=== PATIENT | male | born 1965 | race Caucasian/White ===

== ENCOUNTER 2022-04-26 08:29 | Outpatient (CLI) | payer BC, SELFPAY ==
[2022-04-26 17:42] LABS: Basophils Absolute Auto 0.1 K/mm3 (0.0-0.1); Basophils Percent Auto 1.2 % (0.2-1.2); Eosinophils Absolute Auto 0.2 K/mm3 (0-0.3); Eosinophils Percent Auto 3.3 % (0-4.4); Hemoglobin 16.8 g/dL (14.0-18.0); Immature Granulocyte Absolute 0.01 K/mm3 (0.00-0.031); Immature Granulocyte Percent A 0.2 % (0-0.5); Lymphocytes Absolute Auto 1.92 K/mm3 (0.9-3.2); Lymphocytes Percent Auto 33.8 % (18.3-44.2); Mean Corpuscular Hemoglobin 30.5 pg (26-34); Mean Corpuscular Volume 87.1 fl (80-100); Mean Platelet Volume 9.8 fl (7.4-10.4); Monocytes Absolute Auto 0.5 K/mm3 (0.1-0.6); Monocytes Percent Auto 8.1 % (2.6-8.5); Neutrophils Percent Auto 53.4 % (45.5-73.1); Platelet Count Result 252 k/mm3 (150-375); Red Blood Count 5.51 M/mm3 (4.6-6.20); Red Cell Distribution Width 11.8 % (11.5-14.5); White Blood Count 5.7 K/mm3 (4.5-10.0)
[2022-04-26 18:24] LABS: Alanine Aminotransferase 122 U/L (6-50); Albumin Level 4.5 g/dL (3.5-5.1); Alkaline Phosphatase 124 U/L (38-126); Anion Gap 8 mmol/L (8-16); Aspartate Amino Transferase 83 U/L (17-59); Bilirubin,Total 1.1 mg/dL (0.2-1.3); Blood Urea Nitrogen 11 mg/dL (9-20); Calcium 9.1 mg/dL (8.4-10.2); Carbon Dioxide 26 mmol/L (22-30); Chloride 101 mmol/L (98-107); Cholesterol 207 mg/dL (0-200); Estimated Glomerular Filt Rate > 60; Glucose 286 mg/dL (65-110); HDL Direct 45 mg/dL; Potassium 4.2 mmol/L (3.4-5.0); Sodium 135 mmol/L (137-145); Triglycerides 153 mg/dL (<150)
[2022-04-26 18:40] LABS: LDL Cholesterol Direct 115 mg/dL
[2022-04-26 19:05] LABS: Prostate Specific Antigen 0.7 ng/mL (< OR = 4.0)
[2022-04-26 19:39] LABS: Thyroid Stimulating Hormone Reflex 0.782 uIU/mL (0.465-4.68)
[2022-04-27 18:09] LABS: Hemoglobin A1C 12.1 % (<5.7)
[2022-04-27 19:16] LABS: Hepatitis B Surface Antigen Negative (Negative)
[2022-04-27 19:34] LABS: HAV RESULT Negative (Negative); Hepatitis B Core IgM Result Negative (Negative); Hepatitis C Virus Antibody Negative (Negative)
== END 2022-04-26 08:30 | disposition home or self-care (01) ==
LOC: ANHGOSHLAB 08:30
PROVIDERS: PCP Family Medicine; Visit Provider Nurse Practitioner
DX: Z13.6 Encounter for screening for cardiovascular disorders (principal); Z12.5 Encounter for screening for malignant neoplasm of prostate; Z13.220 Encounter for screening for lipoid disorders; R53.83 Other fatigue; R73.9 Hyperglycemia, unspecified; R74.8 Abnormal levels of other serum enzymes
CPT/HCPCS: 36415; 80053; 80061; 80074; 83036; 84153; 84443; 85025; G0103

== ENCOUNTER → 2023-01-11 09:14 | Outpatient (CLI) | payer BC, SELFPAY ==
--- NOTE | ~2023-01-11 | XR_ITS ---
EXAM: XR shoulder RT min 2V DATE: 01/11/2023 09:23 HISTORY: injury 6-7 months ago pain in right shoulder . COMPARISON: None available. FINDINGS: Normal mineralization. No fracture or dislocation. No lytic or blastic lesion. Mild degene rative change at the AC joint and glenohumeral joint. No erosion or periosteal change. Soft tissues w ithin normal limits. 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 Reviewed, dictated and finalized at location [facility].
== END ==
PROVIDERS: PCP Family Medicine; Visit Provider Family Medicine
DX: M19.011 Primary osteoarthritis, right shoulder (principal)
CPT/HCPCS: 73030

== ENCOUNTER 2023-02-24 08:06 | Outpatient (CLI) | payer BC, SELFPAY ==
[2023-02-24 15:00] LABS: Basophils Absolute Auto 0.1 K/mm3 (0.0-0.1); Basophils Percent Auto 1.2 % (0.2-1.2); Eosinophils Absolute Auto 0.2 K/mm3 (0-0.3); Hemoglobin 17.1 g/dL (14.0-18.0); Immature Granulocyte Absolute 0.02 K/mm3 (0.00-0.031); Immature Granulocyte Percent A 0.3 % (0-0.5); Lymphocytes Absolute Auto 1.75 K/mm3 (0.9-3.2); Lymphocytes Percent Auto 28.8 % (18.3-44.2); Mean Corpuscular HGB Conc 32.9 g/dl (32-36); Mean Corpuscular Hemoglobin 30.4 pg (26-34); Mean Corpuscular Volume 92.4 fl (80-100); Mean Platelet Volume 9.8 fl (7.4-10.4); Monocytes Absolute Auto 0.5 K/mm3 (0.1-0.6); Monocytes Percent Auto 7.9 % (2.6-8.5); Neutrophils Absolute Auto 3.6 K/mm3 (1.3-6.7); Neutrophils Percent Auto 58.8 % (45.5-73.1); Platelet Count Result 268 k/mm3 (150-375); Red Blood Count 5.63 M/mm3 (4.6-6.20); Red Cell Distribution Width 12.1 % (11.5-14.5); White Blood Count 6.1 K/mm3 (4.5-10.0)
[2023-02-24 15:01] LABS: Alanine Aminotransferase 101 U/L (6-50); Albumin Level 4.5 g/dL (3.5-5.1); Alkaline Phosphatase 93 U/L (38-126); Anion Gap 7 mmol/L (8-16); Aspartate Amino Transferase 63 U/L (17-59); Bilirubin,Total 1.1 mg/dL (0.2-1.3); Blood Urea Nitrogen 11 mg/dL (9-20); Calcium 9.6 mg/dL (8.4-10.2); Carbon Dioxide 31 mmol/L (22-30); Chloride 97 mmol/L (98-107); Cholesterol 216 mg/dL (0-200); Estimated Glomerular Filt Rate > 60; Glucose 205 mg/dL (65-110); HDL Direct 47 mg/dL; Potassium 4.9 mmol/L (3.4-5.0); Sodium 135 mmol/L (137-145); Triglycerides 138 mg/dL (<150)
[2023-02-24 15:13] LABS: LDL Cholesterol Direct 127 mg/dL
[2023-02-24 15:31] LABS: Prostate Specific Antigen 0.7 ng/mL (< OR = 4.0)
[2023-02-24 16:22] LABS: Creatinine Urine 85.5 mg/dL
[2023-02-24 16:47] LABS: Hemoglobin A1C 9.3 % (<5.7)
[2023-02-24 16:49] LABS: Vitamin D 25 Hydroxy 39.1 ng/mL
[2023-02-24 16:58] LABS: MALB Creatinine Ratio < 7.0 mg/g (0-30); Microalbumin Urine Random < 6.0 mg/L (0-16.7)
[2023-02-24 17:03] LABS: Thyroid Stimulating Hormone Reflex 0.586 uIU/mL (0.465-4.68)
== END 2023-02-24 08:07 | disposition home or self-care (01) ==
LOC: ANHGOSHLAB 08:08
PROVIDERS: PCP Family Medicine; Visit Provider Family Medicine
DX: E11.9 Type 2 diabetes mellitus without complications (principal); E53.8 Deficiency of other specified B group vitamins; E78.5 Hyperlipidemia, unspecified; Z12.5 Encounter for screening for malignant neoplasm of prostate; Z13.29 Encounter for screening for other suspected endocrine disorder; E55.9 Vitamin D deficiency, unspecified; Z00.00 Encounter for general adult medical examination without abnormal findings; Z79.899 Other long term (current) drug therapy
CPT/HCPCS: 36415; 80053; 80061; 82043; 82306; 82607; 83036; 84153; 84443; 85025; G0103

== ENCOUNTER 2023-03-15 15:30 | Outpatient (RCR) | payer BC, SELFPAY ==
--- NOTE | 2023-01-18 16:22 | OPREHPOC ---
Outpatient Therapy Plan of Care This is a Multidisciplinary Plan of Care that may contain components documented by all disciplines (PT, OT, and ST.) PT Problem 1 PT Problem #1 Knowledge Deficit PT Goal 1 Goal Pt to be IND with issued HEP Target Visit 4 PT Problem 2 PT Problem #2 Pain PT Goal 1 Goal Pt to report shoulder pain no greater than 3/10 in the last week Target Visit 4 PT Goal 2 Goal Pt to report 75% improvement in overall symptoms Target Visit 4 PT Problem 3 PT Problem #3 Impaired Range of Motion PT Goal 1 Goal Pt to improve active shoulder flexion ROM to 150 deg Target Visit 4 PT Goal 2 Goal Pt to improve functional int. rot. ROM to T12 Target Visit 4 PT Problem 4 PT Problem #4 Impaired Functional Mobil PT Goal 1 Goal Pt to report being able to play catch without limitations Target Visit 4
--- NOTE | 2023-01-18 16:23 | PTOPEVAL1 ---
Assessment and note entered by Susana Walker, PT, DPT Evaluation Information Assessment Status Evaluation Diagnosis R shoulder pain Onset chronic Subjective Information Pt reports overall decreased mobility in both of his shoulders but the R more than the L. He states ROM on his R shoulder can be painful at times. He states he was lifting something heavy and thought he felt a pop in his shoulder but thought it got better on its own until recently he was throwing a football and started to get pain again. He states the shoulder pain started about a year ago. 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 Reported Pain Level Pain Score 2: Self Report Assessment PT Clinical Summary Laz presents to therapy today for his initial evaluation with a diagnosis of R shoulder pain. Today he demonstrates active R shoulder ROM this is slightly decreased from her L shoulder, he reports pain with active ROM. He demonstrates good strength and does not report an increase in pain with resistance. His shoulder are forward lisseth likely contributing to his pain. Skilled therapy services are indicated to manage pain, to improve body mechanics, and to return to PLOF without limitations. Plan of Care Interventions Electrical Stimulation,Hot Pack/Cold Pack,Manual Therapy,Neuro Re-education,Patient/Caregiver Educati,Therapeutic Activities,Therapeutic Exercise PT Services Indicated Yes Treatment Frequency and 1x/wk for 4 visits Duration These treatments will address the objective and functional deficits as defined above. The patient will be advanced safely and appropriately in order for the patient to progress towards his/her prior level of function. Additional exercises will be introduced and as well as a comprehensive home exercise program upon discharge, if needed, ?to ensure carryover of functional gains achieved in the clinic. This treatment plan has been reviewed and agreement upon by the patient.
--- NOTE | 2023-02-15 16:21 | PTOPPROG ---
Assessment and note entered by Susana Walker, PT, DPT Evaluation Information Assessment Status Progress Diagnosis R shoulder pain Onset chronic Subjective Information Pt reports he can reach out away from him towards his night stand and maybe only feel a 1/10 pain vs the sharp and shooting pains he was initially. Pt reports intermittent consistency with his exercises. Pt states he has started to try throwing a ball and it feels like there is no strength behind it. Assessment PT Clinical Summary Laz presents to therapy today for his progress report following 5 visits of skilled therapy to treat his diagnosis of R shoulder pain. Today he demonstrates improvement in his active ROM. He continues to get a pinching feeling at end ROM. He is progressing well towards his therapy goals. Continuation of skilled therapy services are indicated to further manage pain, to improve movement mechanics, and to return to PLOF without limitations. Plan of Care Interventions Electrical Stimulation,Hot Pack/Cold Pack,Manual Therapy,Neuro Re-education,Patient/Caregiver Educati,Therapeutic Activities,Therapeutic Exercise PT Services Indicated Yes Treatment Frequency and 1x/wk for 4 visits Duration These treatments will address the objective and functional deficits as defined above. The patient will be advanced safely and appropriately in order for the patient to progress towards his/her prior level of function. Additional exercises will be introduced and as well as a comprehensive home exercise program upon discharge, if needed, ?to ensure carryover of functional gains achieved in the clinic. This treatment plan has been reviewed and agreement upon by the patient.
--- NOTE | 2023-02-22 16:02 | PCPTNOTE ---
Pt now showed visit today. Called and left message for pt of next appt. day and time.
--- NOTE | 2023-02-23 16:54 | PCPTNOTE ---
Patient called & cancelled scheduled appointment this date due to having an important meeting he needs to attend.
--- NOTE | 2023-03-02 13:45 | PCPTNOTE ---
Patient called to cancel this date due to work.
--- NOTE | 2023-03-09 16:00 | PCPTNOTE ---
Patient did not show up for scheduled appointment this date. Called and LVM to remind pt of next appointment.
--- NOTE | 2023-03-15 16:29 | PTOPDC ---
Assessment and note entered by Susana Walker, PT, DPT Evaluation Information Assessment Status Discharge Diagnosis R shoulder pain Onset chronic Subjective Information Pt states his shoulder is still sore and he cannot throw a baseball or shoot a basketball but overall it is moving better. He states when he tires to throw it feels like there is not power behind it. He states the pain/discomfort is manageable but he is not getting the sharp pains like he was before. He states he has returned the gym like his goal was, he reports pain at a 1-2/10 afterwards. Reported Pain Level Pain Score 0: Self Report Assessment PT Clinical Summary Laz presents to therapy today for his progress report following 6 visits of skilled therapy to treat his diagnosis of R shoulder pain. Today he demonstrates active shoulder ROM that is near his L shoulder, his strength is WFL, and he has minimal impingement symptoms. He is progressing well towards his therapy goals and does not feel not more therapy. His HEP was progressed and he was instructed to continue this upon discharge. Plan of Care PT Services Indicated No
== END 2023-03-16 09:39 | disposition home or self-care (01) ==
LOC: ANHGOSHPT 15:30
PROVIDERS: PCP Family Medicine; Visit Provider Family Medicine
DX: M25.511 Pain in right shoulder (principal)
CPT/HCPCS: 97110; 97140; 97161; 97530; 99199

== ENCOUNTER 2024-01-02 08:27 | Outpatient (CLI) | payer BC, SELFPAY ==
[2024-01-02 13:10] LABS: Alanine Aminotransferase 28 U/L (6-50); Albumin Level 4.5 g/dL (3.5-5.1); Alkaline Phosphatase 74 U/L (38-126); Anion Gap 12 mmol/L (4-12); Aspartate Amino Transferase 45 U/L (17-59); Bilirubin,Total 0.9 mg/dL (0.2-1.3); Blood Urea Nitrogen 18 mg/dL (9-20); Calcium 9.5 mg/dL (8.4-10.2); Carbon Dioxide 27 mmol/L (22-30); Chloride 97 mmol/L (98-107); Estimated Glomerular Filt Rate > 60; Glucose 130 mg/dL (65-110); Potassium 4.2 mmol/L (3.4-5.0); Sodium 136 mmol/L (137-145)
[2024-01-02 15:22] LABS: Hemoglobin A1C 5.6 % (<5.7)
[2024-01-02 16:02] LABS: Hepatitis B Surface Antigen Negative (Negative)
[2024-01-02 16:08] LABS: HAV RESULT Negative (Negative); Hepatitis B Core IgM Result Negative (Negative)
[2024-01-02 16:19] LABS: Hepatitis C Virus Antibody Negative (Negative)
== END 2024-01-02 08:28 | disposition home or self-care (01) ==
LOC: ANHGOSHLAB 08:29
PROVIDERS: PCP Family Medicine; Visit Provider Family Medicine
DX: R79.89 Other specified abnormal findings of blood chemistry (principal); I10 Essential (primary) hypertension; E11.9 Type 2 diabetes mellitus without complications
CPT/HCPCS: 36415; 80053; 80074; 83036